=== PATIENT | female | born 1980 | race Caucasian/White ===

== ENCOUNTER → 2016-06-01 | Outpatient (CLI) | payer OTHER ==
[~2016-06-01] MED LIST: PRENTAB26 PO
[2016-06-03 13:24] LABS: AFP CONCENTRATION 69.2 NG/ML; AFPTS GESTATIONAL AGE 20.9 WEEKS; AFPTS INSULIN DEP DIABETIC? NO; AFPTS MATERNAL WT 150 LBS; ALPHA-FETOPROTEIN RACE CAUCASIAN=W; ESTRIOL MULTIPLE OF MEDIAN 0.85; HISTORY OF NTD NO; INHIBIN A 172 PG/ML; INHIBIN A MOM 0.84; REPEAT SAMPLE? NO
== END | disposition home or self-care (01) ==
LOC: C.LAB1850 14:29
PROVIDERS: ATTEND Obstetrics & Gynecology
DX: O09.292 Supervision of pregnancy with other poor reproductive or obstetric history, second trimester (principal)

== ENCOUNTER 2016-07-05 08:32 | Emergency (ER) | payer OTHER ==
[2016-07-05 08:39] VITALS: TEMP 37; Ht 167.6 cm
[2016-07-05] MEDS ORDERED: ACETAMINOPHEN 500 MG TAB PO STA (08:50)
[2016-07-05] MEDS ORDERED: PRENTAB26 PO (08:52)
--- NOTE | 2016-07-05 09:16 | DIAGNOSTIC IMAGING REPORT ---
LEFT FOOT MIN 3 VIEWS ROUTINE CLINICAL HISTORY: L foot pain pain COMPARISON: None. DISCUSSION: The bones and joint spaces appear intact. There is no evidence of fracture, dislocation or bony disease. There is no evidence for soft tissue swelling. IMPRESSION: Negative study. Electronically signed by: Edouard Arroyo M.D. 07/05/2016 9:15 AM Dictated Date/Time: 07/05/2016 9:11 AM
[2016-07-05 10:05] VITALS: BP 116/69; PULSE 89; O2SAT 100
--- NOTE | 2016-07-05 10:43 | EMERGENCY ROOM VISIT NOTE ---
History First contact with patient: 08:46 Chief Complaint: ANKLE PAIN Stated Complaint: ANKLE PAIN/INJURY History of Present Illness The patient is a 36 year old female who presents to the Emergency Room with complaints of left lateral foot pain after twisting her ankle and foot last evening while walking down the stairs with her daughter. The patient rates her discomfort a 5 out of 10 with weightbearing. She reports swelling and bruising over the side of the foot. She has had a history of toe fractures, but denies any history of prior ankle or foot injuries or fractures. She currently denies any pain extending into the ankle or leg. Denies paresthesias or numbness of the left foot or toes. The patient is currently 26 weeks . Review of Systems 10 system review was performed and was negative except for pertinent positives and negatives as indicated in history of present illness Past Medical/Surgical History Medical Problems: (1) No significant past medical history Surgical Problems: (1) No history of previous surgery Family History Unremarkable Social History Smoking Status: Never Smoker Alcohol Use: none Marital Status: Housing Status: lives with family Occupation Status: employed Current/Historical Medications Scheduled Multivit/Min/Iron/Fol Ac/Pren ( Vitamin), 1 TAB PO DAILY Allergies Coded Allergies: No Known Allergies (Unverified , 07/05/16) Physical Exam Vital Signs Date Time Temp Pulse Resp B/P Pulse Ox O2 Delivery O2 Flow Rate FiO2 07/05/16 10:05 89 18 116/69 100 Room Air 07/05/16 09:59 73 16 109/52 98 07/05/16 08:39 37.0 114 20 113/70 98 Room Air Physical Exam CONSTITUTIONAL: Healthy and well nourished. Alert and oriented X 3 with positive affect. Patient does not appear in any acute distress. HEENT: Normocephalic, atraumatic. Pupils equal, round and reactive. NECK: Full active range of motion without discomfort. MUSCULOSKELETAL: Examination of the left foot shows lateral edema and ecchymosis. She has generalized tenderness to palpation over the lateral aspect of the foot and base of the fifth metatarsal. She has no worsening pain with subtalar motion. No tenderness to palpation about the ankle with negative anterior draw. Pedal pulses are intact. INTEGUMENTARY: No rash or other significant dermatologic conditions noted. NEUROLOGIC: No focal neurologic deficits noted. Left foot and toes are sensory intact. Medical Decision & Procedures ER Provider Diagnostic Interpretation: My interpretation of left foot x-rays does not show any acute fractures or dislocations. Radiologist report is as follows: LEFT FOOT MIN 3 VIEWS ROUTINE CLINICAL HISTORY: L foot pain pain COMPARISON: None. DISCUSSION: The bones and joint spaces appear intact. There is no evidence of fracture, dislocation or bony disease. There is no evidence for soft tissue swelling. IMPRESSION: Negative study. Medications Administered Medications (Trade) Dose Ordered Sig/Leandro Route Start Time Stop Time Status Last Admin Dose Admin Acetaminophen (Tylenol Tab) 1,000 mg NOW STAT PO 07/05/16 08:50 07/05/16 08:51 DC 07/05/16 08:56 1,000 MG ED Course Patient history and physical exam were performed. Nurse's notes were reviewed. The patient was administered Tylenol 1 g for pain. An ice pack was also applied. Shielding the abdomen, x-rays of the left foot were performed, showing no evidence for acute fracture. The patient was encouraged to ice and elevate the foot for swelling and pain. Crutches were dispensed. The patient was instructed to limit weightbearing over the next several days. Follow-up with orthopedics if symptoms are not improving over the next 5-7 days. She was happy with plan of care, voiced understanding of all discharge instructions, and rated her pain a 3 out of 10 at the time of discharge. Impression Primary Impression: Left ankle sprain Departure Information Referrals No Doctor, Assigned (PCP) Patient Instructions My [facility] Problem Qualifiers Primary Impression: Left ankle sprain Encounter type: initial encounter Involved ligament of ankle: unspecified ligament Qualified Codes: S93.402A - Sprain of unspecified ligament of left ankle, initial encounter
== END 2016-07-05 10:27 | disposition home or self-care (01) ==
LOC: C.EDB 08:35
DX: S93.402A Sprain of unspecified ligament of left ankle, initial encounter (principal); X50.1XXA Overexertion from prolonged static or awkward postures, initial encounter

== ENCOUNTER → 2016-09-12 | Outpatient (CLI) | payer OTHER ==
[2016-09-12 12:08] LABS: HEMATOCRIT 33.5 % (37-47)
[2016-09-12 12:15] LABS: URINE APPEARANCE CLEAR (CLEAR); URINE BILIRUBIN NEG (NEG); URINE COLOR YELLOW; URINE EPITHELIAL CELL AUTO >30 /lpf (0-5); URINE NITRITE NEG (NEG); URINE SPECIFIC GRAVITY 1.017 (1.000-1.030); UROBILINOGEN NEG (NEG)
[2016-09-12 12:17] LABS: MANUAL MICROSCOPIC REQUIRED? NO; REVIEW REQ? YES
== END | disposition home or self-care (01) ==
LOC: C.LAB1850 09:42
PROVIDERS: ATTEND Obstetrics & Gynecology
DX: O09.293 Supervision of pregnancy with other poor reproductive or obstetric history, third trimester (principal)

== ENCOUNTER → 2016-09-26 | Outpatient (CLI) | payer OTHER | END | disposition home or self-care (01) | LOC: C.LABSPEC 17:59 | PROVIDERS: ATTEND Obstetrics & Gynecology | DX: O09.293 Supervision of pregnancy with other poor reproductive or obstetric history, third trimester (principal); Z3A.00 Weeks of gestation of pregnancy not specified ==